=== PATIENT | female | born 1995 | race African-American/Black ===

== ENCOUNTER 2017-01-01 12:09 | Emergency (ER) | payer OTHER ==
[~2017-01-01] VITALS: Ht 170.2 cm; Wt 72.0 kg
[2017-01-01 12:10] VITALS: BP 133/86; PULSE 101; RESP 18; TEMP 99.2; O2SAT 98
--- NOTE | 2017-01-01 12:27 | PD ---
Physical Exam Time Seen by Provider: 12:21 Narrative Pt presents to the ED for evaluation of vomiting x 2 this morning. States she was hyperventilating and due to the heat while she was walking outside. States she passed out and fell onto the ground. States she felt weak and dizzy before this began secondary to heat. Denies . VSS. Awaiting bed placement. Data Data Last Documented VS Vital Signs Date Time Temp Pulse Resp B/P Pulse Ox O2 Delivery O2 Flow Rate FiO2 01/01/17 12:10 99.2 101 18 133/86 98 Room Air MDM Supervised Visit with ORLIN: No Scripts No Active Prescriptions or Reported Meds Magdalena Kc Jan 01, 2017 12:27
[2017-01-01 14:00] VITALS: BP 136/89; PULSE 83; RESP 16; O2SAT 99
[2017-01-01] MEDS ORDERED: SODIUM CHLOR 0.9% 1000 ML INJ 1,000 ML IV ONE (14:08)
[2017-01-01 14:15] VITALS: O2SAT 99
[2017-01-01] MEDS ORDERED: SODIUM CHLORIDE 0.9% FLUSH 10 ML FLUSH IVF PRN (14:15)
--- NOTE | 2017-01-01 14:19 | PD ---
HPI Chief Complaint: Syncope/Near-Syncope Time Seen by Provider: 14:00 Travel History International Travel<30 days: No Contact w/Intl Traveler<30days: No Traveled to known affect area: No History of Present Illness HPI 21-year-old female presents emergency department for reported syncope while walking in the heat prior to arrival. Patient reports she was walking "a long distance" when she felt nauseous vomiting twice then became dizzy and weak from the heat and states she fell to the ground passing out. She reports a passing car stopped and took her to the emergency department for evaluation. The patient reports now that she feels weak and has a headache. She is unsure if she hit her head when she fell to the ground. PFSH Past Medical History ADHD: Yes (adhd) Bipolar Disorder: Yes Cancer: No Diabetes: No Diminished Hearing: No Psychiatric: Yes (adhd, bipolar) Immunizations Current: Yes Migraines: No Seizures: No Thyroid Disease: No Ulcer: No Tetanus Vaccination: > 5 Years Influenza Vaccination: Yes ?: Not LMP: 12/22/16 Past Surgical History Surgical History: No Previous Surgery Appendectomy: No Cholecystectomy: No Other Surgery: No Social History Alcohol Use: No Tobacco Use: No Substance Use: No Allergies-Medications (Allergen,Severity, Reaction): Coded Allergies: No Known Allergies (Verified , 01/01/17) Reported Meds & Prescriptions Reported Meds & Active Scripts Active No Active Prescriptions or Reported Medications Review of Systems Except as stated in HPI: all other systems reviewed are Neg General / Constitutional: No: Fever Eyes: No: Visual changes HENT: Positive: Headaches Cardiovascular: No: Chest Pain or Discomfort Respiratory: No: Shortness of Breath Genitourinary: No: Dysuria Musculoskeletal: No: Pain Skin: No Rash Neurologic: Positive: Weakness Physical Exam Narrative GENERAL: Alert, well-appearing female no acute distress. SKIN: Focused skin assessment warm/dry. HEAD: Atraumatic. Normocephalic. EYES: Pupils equal and round. No scleral icterus. No injection or drainage. ENT: No nasal bleeding or discharge. Mucous membranes pink and moist. NECK: Trachea midline. No JVD. No cervical midline tenderness. CARDIOVASCULAR: Regular rate and rhythm. No murmur appreciated. RESPIRATORY: No accessory muscle use. Clear to auscultation. Breath sounds equal bilaterally. GASTROINTESTINAL: Abdomen soft, non-tender, nondistended. Hepatic and splenic margins not palpable. MUSCULOSKELETAL: No obvious deformities. No clubbing. No cyanosis. No edema. No physical signs of trauma from the fall. No bony tenderness. NEUROLOGICAL: Awake and alert. No obvious cranial nerve deficits. Motor grossly within normal limits. Normal speech. PSYCHIATRIC: Appropriate mood and affect; insight and judgment normal. Data Data Last Documented VS Vital Signs Date Time Temp Pulse Resp B/P Pulse Ox O2 Delivery O2 Flow Rate FiO2 01/01/17 14:25 76 16 115/73 89 18 131/78 97 20 123/82 01/01/17 14:15 99 Room Air 01/01/17 12:10 99.2 Orders Electrocardiogram (01/01/17 14:08) Basic Metabolic Panel (Bmp) (01/01/17 14:08) Ed Urine Pregnancytest Poc (01/01/17 14:08) Complete Blood Count With Diff (01/01/17 14:08) Ecg Monitoring (01/01/17 14:08) Iv Access Insert/Monitor (01/01/17 14:08) Oximetry (01/01/17 14:08) Sodium Chloride 0.9% Flush (Ns Flush) (01/01/17 14:15) Sodium Chlor 0.9% 1000 Ml Inj (Ns 1000 M (01/01/17 14:08) Orthostatic Vital Signs (01/01/17 14:15) Ct Brain W/O Iv Contrast(Rout) (01/01/17 ) Labs Laboratory Tests Test 01/01/17 14:15 White Blood Count 9.0 TH/MM3 Red Blood Count 4.48 MIL/MM3 Hemoglobin 13.9 GM/DL Hematocrit 41.3 % Mean Corpuscular Volume 92.2 FL Mean Corpuscular Hemoglobin 31.0 PG Mean Corpuscular Hemoglobin 33.6 % Concent Red Cell Distribution Width 12.0 % Platelet Count 388 TH/MM3 Mean Platelet Volume 8.8 FL Neutrophils (%) (Auto) 70.8 % Lymphocytes (%) (Auto) 18.5 % Monocytes (%) (Auto) 7.1 % Eosinophils (%) (Auto) 3.5 % Basophils (%) (Auto) 0.1 % Neutrophils # (Auto) 6.3 TH/MM3 Lymphocytes # (Auto) 1.7 TH/MM3 Monocytes # (Auto) 0.6 TH/MM3 Eosinophils # (Auto) 0.3 TH/MM3 Basophils # (Auto) 0.0 TH/MM3 CBC Comment DIFF FINAL Differential Comment Sodium Level 140 MEQ/L Potassium Level 4.0 MEQ/L Chloride Level 106 MEQ/L Carbon Dioxide Level 26.2 MEQ/L Anion Gap 8 MEQ/L Blood Urea Nitrogen 10 MG/DL Creatinine 0.92 MG/DL Estimat Glomerular Filtration 94 ML/MIN Rate Random Glucose 94 MG/DL Calcium Level 9.8 MG/DL [facility] Medical Decision Making Medical Screen Exam Complete: Yes Emergency Medical Condition: Yes Differential Diagnosis Syncope, heat exhaustion, hypoglycemia, orthostasis, electrolyte abnormality, Narrative Course 21-year-old female presents to emergency Department for evaluation of syncope after being out in the heat walking long distance. Patient is well-appearing. Her physical exam is reassuring. IV established, EKG obtained, labs ordered, 1 L of normal saline infusing. EKG: Sinus rhythm rate of 78. No ST or T-wave changes. Normal axis. CBC: Unremarkable BMP: Unremarkable CT of the brain: Unremarkable 1600 Reassessment: Discussed all diagnostic findings with patient. She reports symptom improvement is requesting discharge. Her headache is resolved. Patient is stable and ready for discharge. Return precautions discussed. Diagnosis Primary Impression: Syncope Qualified Code: R55 - Syncope, unspecified syncope type Referrals: Primary Care Physician Additional Instructions: Drink plenty fluids and rest. Avoid being out in the heat. Return to the emergency department if he had new or worsening symptoms. Scripts No Active Prescriptions or Reported Meds Disposition: 01 DISCHARGE HOME Condition: Stable Nicki Uribe Jan 01, 2017 14:19
[2017-01-01 14:25] VITALS: BP_SYST 115; BP_SYST 123; BP_SYST 131; BP_DIAS 73; BP_DIAS 78; BP_DIAS 82; RESP 16; RESP 18; RESP 20
[2017-01-01 14:27] LABS: AUTOMATED NEUTROPHIL # 6.3 TH/MM3 (1.8-7.7); BASOPHIL % 0.1 % (0.0-2.0); EOSINOPHIL # 0.3 TH/MM3 (0-0.4); EOSINOPHIL % 3.5 % (0.0-4.0); HEMATOCRIT 41.3 % (35.0-46.0); HEMO FLAGS DIFF FINAL; LYMPH % 18.5 % (9.0-44.0); LYMPHOCYTE # 1.7 TH/MM3 (1.0-4.8); MEAN CELL VOLUME 92.2 FL (80.0-100.0); MEAN CORPUSCULAR HGB CONC 33.6 % (32.0-36.0); MONO % 7.1 % (0.0-8.0); NEUT % 70.8 % (16.0-70.0); PLATELET COUNT 388 TH/MM3 (150-450); RED BLOOD COUNT 4.48 MIL/MM3 (4.00-5.30)
[2017-01-01 14:43] LABS: BICARBONATE 26.2 MEQ/L (21.0-32.0)
--- NOTE | 2017-01-01 15:40 | RADRPT ---
EXAM DATE/TIME: 01/01/2017 15:28 [facility] COMPARISON: CT BRAIN W/O CONTRAST, April 05, 2014, 22:42. INDICATIONS : Patient with syncope episode, hit head. RADIATION DOSE: 56.77 CTDIvol (mGy) MEDICAL HISTORY : None SURGICAL HISTORY : None. ENCOUNTER: Initial ACUITY: 1 day PAIN SCALE: 7/10 LOCATION: Bilateral cranial TECHNIQUE: Multiple contiguous axial images were obtained of the head. Using automated exposure control and adj ustment of the mA and/or kV according to patient size, radiation dose was kept as low as reasonably a chievable to obtain optimal diagnostic quality images. DICOM format image data is available electro nically for review and comparison. FINDINGS: CEREBRUM: The ventricles are normal for age. No evidence of midline shift, mass lesion, hemorrhage or acute in farction. No extra-axial fluid collections are seen. POSTERIOR FOSSA: The cerebellum and brainstem are intact. The 4th ventricle is midline. The cerebellopontine angle i s unremarkable. EXTRACRANIAL: The visualized portion of the orbits is intact. SKULL: The calvaria is intact. No evidence of skull fracture. CONCLUSION: Normal examination for a patient of this age. No significant change has occurred. Devin Negro MD on January 01, 2017 at 15:37 Board Certified Radiologist. This report was verified electronically.
[2017-01-01 16:14] VITALS: BP 128/67
--- NOTE | 2017-01-02 17:36 | EKG ---
Date Performed: 01/01/2017 Time Performed: 14:22:49 PTAGE: 21 years EKG: Sinus rhythm NORMAL ECG NO PREVIOUS TRACING DOCTOR: Karen Dsouza Interpretating Date/Time 01/02/2017 17:34:31
== END 2017-01-01 16:20 | disposition home or self-care (01) ==
LOC: NEPD 12:09
DX: R55 Syncope and collapse (principal); R11.2 Nausea with vomiting, unspecified; R42 Dizziness and giddiness; R53.1 Weakness; R51 Headache; Z86.59 Personal history of other mental and behavioral disorders
CPT/HCPCS: 70450; 80048; 84703; 85025; 93005; 96360; 99285; J7030

== ENCOUNTER 2017-02-24 15:46 | Emergency (ER) | payer OTHER ==
[2017-02-24 15:47] VITALS: BP 121/81; PULSE 95; RESP 16; TEMP 98.2; O2SAT 99
--- NOTE | 2017-02-24 16:13 | PD ---
Physical Exam Date Seen by Provider: Feb 24, 2017 Time Seen by Provider: 16:12 Narrative Pt is a 21 year old female presenting with 3 weeks of low back pain. Pt denies any injury or trauma. Pt has taken ibuprofen and tylenol and states it doesn't work. Pt denies any dysuria. Hx of back issues as a child. VSS, awaiting bed placement. Data Data Last Documented VS Vital Signs Date Time Temp Pulse Resp B/P (MAP) Pulse Ox O2 Delivery O2 Flow Rate FiO2 02/24/17 15:47 98.2 95 16 121/81 (94) 99 MDM Supervised Visit with ORLIN: No Scripts No Active Prescriptions or Reported Meds Danni Renee Feb 24, 2017 16:13
[2017-02-24] MEDS ORDERED: IBUP800T23 PO (16:51)
[2017-02-24] MEDS ORDERED: ROBA500T PO (16:51)
--- NOTE | 2017-02-24 16:51 | PD ---
HPI Chief Complaint: Back/ Neck Pain or Injury Time Seen by Provider: 16:48 Travel History International Travel<30 days: No Contact w/Intl Traveler<30days: No Traveled to known affect area: No History of Present Illness HPI 21-year-old female presents to emergency Department with complaint of bilateral lower back pain 3 weeks. Denies injury. Denies heavy lifting, twisting, turning. Says she stands a lot on her feet at work. Head history of lower back pain as a child secondary to scoliosis but has not experienced back pain for many years. Denies dysuria, urgency, frequency. Denies encopresis, incontinence, saddle anesthesias. Denies paresthesias, loss of sensation, decreased range of motion, decreased strength bilateral lower extremities. Denies IV drug use or cancer. Denies fever, vomiting, abdominal pain. Denies abnormal vaginal discharge or odor. Denies difficulty in relating. Has taken ibuprofen, icy hot, and massage for symptomatic management. Says the pain does go away at times, but then returns. Pain is aggravated with movement. Symptoms are moderate in severity. Has no other medical complaints. No known allergies. No other modifying factors or associated signs and symptoms. PFSH Past Medical History ADHD: Yes (adhd) Bipolar Disorder: Yes Cancer: No Diabetes: No Diminished Hearing: No Psychiatric: Yes (adhd, bipolar) Immunizations Current: Yes Migraines: No Seizures: No Thyroid Disease: No Ulcer: No Past Surgical History Appendectomy: No Cholecystectomy: No Other Surgery: No Social History Alcohol Use: No Tobacco Use: No Substance Use: No Allergies-Medications (Allergen,Severity, Reaction): Coded Allergies: No Known Allergies (Verified , 01/01/17) Reported Meds & Prescriptions Reported Meds & Active Scripts Active Ibuprofen 800 Mg Tab 800 Mg PO Q6HR PRN Robaxin (Methocarbamol) 500 Mg Tab 500 Mg PO QID PRN Review of Systems Except as stated in HPI: all other systems reviewed are Neg Physical Exam Narrative GENERAL: Well-nourished, well-developed black female patient, in no acute distress; afebrile, nontoxic-appearing SKIN: Warm and dry. HEAD: Atraumatic. Normocephalic. EYES: Pupils equal and round. No scleral icterus. No injection or drainage. ENT: Mucosa pink and moist. Airway patent. NECK: Trachea midline. CARDIOVASCULAR: Regular rate. RESPIRATORY: No accessory muscle use. GASTROINTESTINAL: Flat. MUSCULOSKELETAL: Bilateral lower extremities supple and non-tense with 2+ pedal pulses and sensory intact; with full range of motion and 5/5 strength. 2 + DTRs bilaterally. Active dorsiflexion and extension of bilateral feet. Bilateral straight leg raise is negative for low back pain. Ambulatory in room with normal gait. Sitting up in bed at 90. No obvious deformities. No clubbing. No cyanosis. No edema. BACK: No CVA tenderness. No midline point tenderness on palpation of the lumbar spine. Tenderness on palpation of bilateral lumbar paraspinal musculature. No obvious deformities. NEUROLOGICAL: Awake and alert. Oriented 3. No obvious cranial nerve deficits. Motor grossly within normal limits. Normal speech. Moves all extremities. 5/5 strength to all extremities. Sensory intact. PSYCHIATRIC: Appropriate mood and affect; insight and judgment normal. Data Data Last Documented VS Vital Signs Date Time Temp Pulse Resp B/P (MAP) Pulse Ox O2 Delivery O2 Flow Rate FiO2 02/24/17 15:47 98.2 95 16 121/81 (94) 99 Orders Orders Methocarbamol (Robaxin) (02/24/17 17:00) Ibuprofen (Motrin) (02/24/17 17:00) [facility] Medical Decision Making Medical Screen Exam Complete: Yes Emergency Medical Condition: Yes Medical Record Reviewed: Yes Differential Diagnosis Low back pain, low back strain, sciatica, muscle spasms Narrative Course 21-year-old female with low back pain. Denies encopresis, incontinence, saddle anesthesias. Denies IV drug use or cancer. Nose CVA tenderness. Denies urinary or vaginal symptoms. History of scoliosis and back pain as a child. No midline tenderness on palpation of the lumbar spine. Patient is ambulatory with a normal gait in the room. Robaxin and ibuprofen administered in the ER. Robaxin and ibuprofen prescribed for home. Instructed patient to follow up with primary care provider. Patient verbalizes understanding and agreement with treatment plan. Patient is medically cleared and stable for discharge. Discussed reasons to return to the emergency department. Patient agrees with treatment plan. The patients vital signs are stable and the patient is stable for outpatient follow-up and treatment. Patient discharged home, stable and in no acute distress. Diagnosis Primary Impression: Low back pain Qualified Codes: M54.5 - Low back pain Referrals: Primary Care Physician Patient Instructions: Acute Low Back Pain (ED), General Instructions Additional Instructions: Tylenol or ibuprofen as directed and as needed for pain Robaxin as prescribed and as needed for muscle spasms Heating pad and/or ice to affected area to reduce pain Avoid aggravating activities; increase activity as tolerated Follow-up with primary care provider Return to emergency department immediately with worsening of symptoms Med/Other Pt SpecificInfo: Prescription(s) given Scripts Ibuprofen (Ibuprofen) 800 Mg Tab 800 MG PO Q6HR Y for PAIN, #30 TAB 0 Refills Prov: Magdalena West 02/24/17 Methocarbamol (Robaxin) 500 Mg Tab 500 MG PO QID Y for MUSCLE SPASM, #30 TAB 0 Refills Prov: Magdalena West 02/24/17 Disposition: 01 DISCHARGE HOME Condition: Stable Magdalena West Feb 24, 2017 16:51
[2017-02-24] MEDS ORDERED: METHOCARBAMOL 500 MG TAB PO ONE (17:00)
[2017-02-24] MEDS ORDERED: IBUPROFEN 800 MG TAB PO ONE (17:00)
== END 2017-02-24 17:04 | disposition home or self-care (01) ==
LOC: NEPK 15:46
DX: M54.5 Low back pain (principal)
CPT/HCPCS: 99283